=== PATIENT | female | born 1990 ===

== ENCOUNTER 2021-09-26 10:30 | Emergency (ER) | payer OTHER, SELFPAY ==
[2021-09-26] VITALS (12 sets, daily range): BP systolic 109–142; BP diastolic 63–83; PULSE 93–113; RESP 18; TEMP 37; O2SAT 97–100; BMI 39.4
--- NOTE | 2021-09-26 10:40 | DI.RAD.S_ITS ---
PROCEDURE: XR CHEST 1V INDICATIONS: post op fever eval for PNA TECHNIQUE: One view of the chest was acquired. COMPARISON: None. FINDINGS: Surgical changes and devices: None. Lungs and pleura: Lungs are clear. No pleural effusions or pneumothorax. Mediastinum: Mediastinal contours appear normal. Heart size is normal. Bones and chest wall: No suspicious bony lesions. Overlying soft tissues appear unremarkable. IMPRESSION: No acute pulmonary process. Dictated by: Regi Santana M.D. on 09/26/2021 at 11:32 Approved by: Regi Santana M.D. on 09/26/2021 at 11:32
--- NOTE | 2021-09-26 10:41 | ED_ITS ---
HPI - General Adult General Chief complaint: Abdominal Pain Stated complaint: post op surgery x8 days fever sweating Time Seen by Provider: 09/26/21 10:32 Source: patient Mode of arrival: Ambulatory Limitations: no limitations History of Present Illness HPI narrative: Patient is a 30-year-old female. Approximately 1 week ago underwent a laparoscopic assisted vaginal hysterectomy. This was done secondary to endo metriosis and pelvic pain. Was done at [facility]. She stated that they took her uterus and cervix. Her ovaries remained. She previously had already had her tubes removed. She states that over the past couple days she has had fevers and chills and body aches. She is also having urinary frequency and urgency. Has having minor vaginal spotting but no other discharge. No cough. No sore throat. No chest pain. No shortness of breath. No abdominal pain. No nausea vomiting. No skin rashes. Related Data Allergies Allergy/AdvReac Type Severity Reaction Status Date / Time cephalexin [From Keflex] Allergy Verified 09/26/21 10:43 ondansetron [From Zofran] Allergy Verified 09/26/21 10:43 sertraline [From Zoloft] Allergy Verified 09/26/21 10:43 Review of Systems Review of Systems ROS Unobtainable: All systems reviewed & are unremarkable except as noted in HPI and below Patient History Medical History (Updated 09/26/21 @ 13:28 by Osito Dixon DO) Endometriosis Surgical History History of hysterectomy Social History (Updated 09/26/21 @ 10:45 by Osito Dixon DO) lives independently: Yes Smoking Status: Never smoker Exam Initial Vital Signs Initial Vital Signs: Vital Signs Pulse Rate 113 H 09/26/21 10:38 Respiratory Rate 18 09/26/21 10:38 Pulse Oximetry 98 09/26/21 10:38 Const General: cooperative, comfortable and well developed HENNM Head: normal to inspection and normocephalic Resp Effort & Inspection: normal respiratory effort Auscultation: clear to auscultation bilaterally Cardio Rate: regular rate Rhythm: regular rhythm GI Inspection: normal to inspection and non-distended Palpation: No tender Skin Other: Surgical scars on abdomen that appear well without surrounding erythema. Neuro General: patient alert, patient awake and moves all extremities Extrem General: normal to inspection and capillary refill normal Psych Appearance: grossly normal and well kempt Course Orders Ordered: ED Orders 09/26/21 10:33 Complete Blood Count AUTO DIFF Stat 09/26/21 10:38 Urinalysis and Microscopic Stat Urine Culture Stat 09/26/21 10:40 XR chest 1V Stat 09/26/21 10:47 Comprehensive Metabolic Panel Stat Lactate (Lactic Acid) Stat Lipase Stat Test Serum,Qual Stat Procalcitonin Stat 09/26/21 11:00 Blood Culture Stat Discontinued Medications Sodium Chloride (Normal Saline 0.9%) 1,000 mls @ 1,000 mls/hr IV BOLUS ONE Stop: 09/26/21 11:39 Last Infusion: 09/26/21 12:12 Dose: 0 mls/hr Documented By: Admin: 09/26/21 10:53 Dose: 1,000 mls/hr Documented By: CARL Vital Signs Vital signs: Vital Signs - 8 hr 09/26/21 10:43 09/26/21 10:38 09/26/21 11:00 Temperature 98.6 F Pulse Rate 112 H 113 H 105 H Respiratory Rate 18 18 Blood Pressure 136/83 Pulse Oximetry 97 98 98 Oxygen Delivery Method Room Air 09/26/21 11:09 09/26/21 11:10 09/26/21 11:10 Temperature Pulse Rate 102 H 102 H Respiratory Rate 18 Blood Pressure 121/77 Pulse Oximetry 98 99 Oxygen Delivery Method 09/26/21 11:30 09/26/21 11:30 09/26/21 12:00 Temperature Pulse Rate 98 H Respiratory Rate Blood Pressure 111/72 113/63 Pulse Oximetry 98 Oxygen Delivery Method 09/26/21 12:00 09/26/21 13:38 09/26/21 12:30 Temperature Pulse Rate 97 H 97 H Respiratory Rate 18 Blood Pressure 142/78 H 109/71 Pulse Oximetry 100 98 Oxygen Delivery Method Room Air 09/26/21 12:30 09/26/21 13:00 09/26/21 13:01 Temperature Pulse Rate 97 H 93 H Respiratory Rate Blood Pressure 131/80 Pulse Oximetry 100 100 Oxygen Delivery Method 09/26/21 13:01 09/26/21 13:30 09/26/21 13:30 Temperature Pulse Rate 93 H 95 H Respiratory Rate Blood Pressure 142/78 H Pulse Oximetry 100 99 Oxygen Delivery Method Medical Decision Making Lab Data Result diagrams: 09/26/21 10:33 09/26/21 10:47 Labs: Lab Results 09/26/21 09/26/21 09/26/21 Range/Units 10:33 10:38 10:47 WBC 10.0 (4.5-11.0) X10^3/uL RBC 4.15 (4.0-5.2) X10^6/uL Hgb 11.0 L (12.0-16.0) g/dL Hct 33.1 L (36-46) % MCV 79.8 L (80-100) fL MCH 26.5 (26-34) PG MCHC 33.2 (30-36) % RDW 14.2 (11.6-14.8) % Plt Count 357 (150-400) X10^3/uL Neut % (Auto) 72.9 (50-75) % Lymph % (Auto) 15.5 L (25-40) % [place] % (Auto) 6.1 (3-14) % Eos % (Auto) 5.1 H (2-4) % Baso % (Auto) 0.4 (0-2) % Neut # (Auto) 7300 H (6903-3535) /uL Lymph # (Auto) 1500 (0734-6567) /uL [place] # (Auto) 600 (0-900) /uL Eos # (Auto) 500 H (0-450) /uL Baso # (Auto) 0 (0-100) /uL Sodium 138 (137-145) mmol/L Potassium 4.2 (3.4-5.1) mmol/L Chloride 100 (98-107) mmol/L Carbon Dioxide 25 (22-32) mmol/L BUN 10 (7-17) mg/dL Creatinine 0.69 (0.52-1.04) mg/dL Estimated GFR > 60 (>60) mL/min BUN/Creatinine Ratio 14.5 (6-22) Glucose 138 H (70-100) mg/dL Lactate (0.7-2.1) mmol/L Calcium 8.9 (8.4-10.2) mg/dL Total Bilirubin 0.5 (0.2-1.3) mg/dL AST 24 (14-36) IU/L ALT 20 (<35) IU/L Alkaline Phosphatase 118 (38-126) U/L Total Protein 8.6 H (6.3-8.2) g/dL Albumin 4.5 (3.5-5.0) g/dL Globulin 4.1 (1.7-4.1) g/dL Albumin/Globulin Ratio 1.1 (1.0-2.8) Lipase 34 (23-300) U/L Procalcitonin 0.09 (<0.5) ng/mL Serum , Qual (Negative) Urine Color Yellow Urine Appearance Clear Urine pH 7.5 (4.5-8.0) Ur Specific [place] 1.010 (1.000-1.035) Urine Protein 2+ H (Negative) Urine Glucose (UA) Negative (Negative) g/dL Urine Ketones Negative (NEGATIVE) Urine Occult Blood 2+ H (Negative) Urine Nitrate Negative (Negative) Urine Bilirubin Negative (NEGATIVE) Urine Urobilinogen 0.2 (0.2) E.U./dL Ur Leukocyte Esterase Trace H (NEGATIVE) Urine RBC 1-5/hpf (0-5/HPF) Urine WBC 1-5/hpf (0-5/HPF) Ur Squamous Epith Cells >30 /hpf H (0-5/HPF) Urine Bacteria Moderate (10-30) H (None) Ur Culture Indicated? Culture not indicate 09/26/21 09/26/21 Range/Units 10:47 10:47 WBC (4.5-11.0) X10^3/uL RBC (4.0-5.2) X10^6/uL Hgb (12.0-16.0) g/dL Hct (36-46) % MCV (80-100) fL MCH (26-34) PG MCHC (30-36) % RDW (11.6-14.8) % Plt Count (150-400) X10^3/uL Neut % (Auto) (50-75) % Lymph % (Auto) (25-40) % [place] % (Auto) (3-14) % Eos % (Auto) (2-4) % Baso % (Auto) (0-2) % Neut # (Auto) (3039-6847) /uL Lymph # (Auto) (0217-1585) /uL [place] # (Auto) (0-900) /uL Eos # (Auto) (0-450) /uL Baso # (Auto) (0-100) /uL Sodium (137-145) mmol/L Potassium (3.4-5.1) mmol/L Chloride (98-107) mmol/L Carbon Dioxide (22-32) mmol/L BUN (7-17) mg/dL Creatinine (0.52-1.04) mg/dL Estimated GFR (>60) mL/min BUN/Creatinine Ratio (6-22) Glucose (70-100) mg/dL Lactate 1.2 (0.7-2.1) mmol/L Calcium (8.4-10.2) mg/dL Total Bilirubin (0.2-1.3) mg/dL AST (14-36) IU/L ALT (<35) IU/L Alkaline Phosphatase (38-126) U/L Total Protein (6.3-8.2) g/dL Albumin (3.5-5.0) g/dL Globulin (1.7-4.1) g/dL Albumin/Globulin Ratio (1.0-2.8) Lipase (23-300) U/L Procalcitonin (<0.5) ng/mL Serum , Qual Negative (Negative) Urine Color Urine Appearance Urine pH (4.5-8.0) Ur Specific [place] (1.000-1.035) Urine Protein (Negative) Urine Glucose (UA) (Negative) g/dL Urine Ketones (NEGATIVE) Urine Occult Blood (Negative) Urine Nitrate (Negative) Urine Bilirubin (NEGATIVE) Urine Urobilinogen (0.2) E.U./dL Ur Leukocyte Esterase (NEGATIVE) Urine RBC (0-5/HPF) Urine WBC (0-5/HPF) Ur Squamous Epith Cells (0-5/HPF) Urine Bacteria (None) Ur Culture Indicated? Imaging Data Chest x-ray: Radiologist's Impression: [address] [address] XRay Report Signed Patient: Mattie Ford MR#: [id number] : 1990 Acct:[id number] Age/Sex: 30 / F Date of Service: 09/26/21 Loc: ED Accession Number: [id number] ?? Procedure: XR chest 1V Ordering Provider: Osito Dixon D.O. PROCEDURE:? XR CHEST 1V ? INDICATIONS:? post op fever eval for PNA ? TECHNIQUE:? One view of the chest was acquired.? ? COMPARISON:? None. ? FINDINGS:? ? Surgical changes and devices:? None.? ? Lungs and pleura:? Lungs are clear.? No pleural effusions or pneumothorax.? ? Mediastinum:? Mediastinal contours appear normal.? Heart size is normal.? ? Bones and chest wall:? No suspicious bony lesions.? Overlying soft tissues appear unremarkable.? ? IMPRESSION:? No acute pulmonary process. ? ? Dictated by: Regi Santana M.D. on 09/26/2021 at 11:32 ? ? Approved by: Regi Santana M.D. on 09/26/2021 at 11:32?? MDM Narrative Medical decision making narrative: Patient is benign exam. Is afebrile. Not tachycardic. Not hypotensive. No leukocytosis. Normal lactate. Normal procalcitonin. Negative chest x-ray. Urinalysis does have bacteria however also has epi cells. We wait for the culture to result before treating with any antibiotics. Blood cultures were obtained. There is no specific indication for any antibiotics. Patient is nontoxic appearing. Discharge home with strict return precautions. She expressed understanding agreement. Discharge Plan Departure Patient Disposition: Home Clinical Impression: Post-operative complication Activity Restrictions/Additional Instructions: Recommend that you continue all of the postoperative instructions given to you by the surgeon. There were cultures pending at the time of your discharge and we will contact you we to start any antibiotics. You can continue to take Tylenol/ibuprofen for any fevers. Be sure to increase your fluid intake. Return to the emergency department for any new or worsening symptoms. Referrals: Doctor Dee MD [Primary Care Provider] - Visit Report Forms: Patient Portal/API
[2021-09-26] MEDS: SODIUM CHLORIDE 0.9% 1,000 ML 1000 ML IV (10:53)
[2021-09-26 11:04] LABS: Add Manual Diff / Slide Review NO; Basophils Absolute Auto 0 /uL (0-100); Basophils Percent Auto 0.4 % (0-2); Eosinophils Absolute Auto 500 /uL (0-450); Eosinophils Percent Auto 5.1 % (2-4); Hematocrit 33.1 % (36-46); Lymphocytes Absolute Auto 1500 /uL (1100-4500); Lymphocytes Percent Auto 15.5 % (25-40); Mean Corpuscular HGB Conc 33.2 % (30-36); Mean Corpuscular Hemoglobin 26.5 PG (26-34); Mean Corpuscular Volume 79.8 fL (80-100); Monocytes Absolute Auto 600 /uL (0-900); Monocytes Percent Auto 6.1 % (3-14); Neutrophils Absolute Auto 7300 /uL (1500-7000); Neutrophils Percent Auto 72.9 % (50-75); Platelet Count 357 X10^3/uL (150-400); Red Blood Cell Count 4.15 X10^6/uL (4.0-5.2); Red Cell Distribution Width 14.2 % (11.6-14.8)
[2021-09-26 11:10] LABS: Appearance Urine UA CLEAR; Bilirubin Urine UA NEGATIVE (NEGATIVE); Color Urine UA YELLOW; Glucose Urine UA NEGATIVE (Negative); Ketones Urine UA NEGATIVE (NEGATIVE); Leukocyte Esterase Urine UA TRACE (NEGATIVE); Nitrite Urine UA NEGATIVE (Negative); Occult Blood Urine UA 2+ (Negative); Protein Urine UA 2+ (Negative); Urobilinogen Urine UA 0.2 E.U./dL (0.2)
[2021-09-26 11:11] LABS: pH Urine UA 7.5 (4.5-8.0)
--- NOTE | 2021-09-26 11:18 | PC.NURSE ---
Obtained pt care. Checked on pt who reports 2/10 cramping pain that radiates to back, and burning with voiding. traffic monitor specialist in place. Encouraged to use call light for needs.
[2021-09-26 11:33] LABS: Pregnancy Test Serum,Qual Negative (Negative)
[2021-09-26 11:33] LABS: RBC Urine 1-5/HPF (0-5/HPF); WBC Urine 1-5/HPF (0-5/HPF)
[2021-09-26 11:34] LABS: Bacteria Urine Moderate (10-30); Squamous Epithelial Cell Urine >30 /HPF (0-5/HPF)
[2021-09-26 11:53] LABS: Alanine Aminotransferase 20 IU/L (<35); Albumin 4.5 g/dL (3.5-5.0); Albumin Globulin Ratio 1.1 (1.0-2.8); Alkaline Phosphatase 118 U/L (38-126); Aspartate Aminotransferase 24 IU/L (14-36); BUN Creatinine Ratio 14.5 (6-22); Bilirubin Total 0.5 mg/dL (0.2-1.3); Blood Urea Nitrogen 10 mg/dL (7-17); Calcium 8.9 mg/dL (8.4-10.2); Carbon Dioxide 25 mmol/L (22-32); Chloride 100 mmol/L (98-107); Estimated Glomerular Filt Rate > 60 mL/min (>60); Globulin 4.1 g/dL (1.7-4.1); Glucose 138 mg/dL (70-100); HEMOLYSIS < 15 (0-50); Lipase 34 U/L (23-300); Potassium 4.2 mmol/L (3.4-5.1); Sodium 138 mmol/L (137-145); Total Protein 8.6 g/dL (6.3-8.2)
[2021-09-26 11:54] LABS: Lactate (Lactic Acid) 1.2 mmol/L (0.7-2.1)
[2021-09-26 12:10] LABS: Procalcitonin 0.09 ng/mL (<0.5)
== END 2021-09-26 13:41 | disposition home or self-care (01) ==
PROVIDERS: Emergency Provider Emergency Medicine
DX: T81.9XXA Unspecified complication of procedure, initial encounter (principal); R50.9 Fever, unspecified; Z90.710 Acquired absence of both cervix and uterus
CPT/HCPCS: 36415; 71045; 80053; 81001; 83605; 83690; 84145; 84703; 85025; 87040; 87086; 96360; 99284

== ENCOUNTER 2022-06-09 08:33 | Emergency (ER) | payer OTHER, SELFPAY ==
[2022-06-09] VITALS (9 sets, daily range): BP systolic 124–174; BP diastolic 78–98; PULSE 82–104; RESP 12–26; TEMP 37.2; O2SAT 98–100; BMI 40.6
--- NOTE | 2022-06-09 09:16 | DI.RAD.S_ITS ---
PROCEDURE: XR CHEST 1V INDICATIONS: chest pain TECHNIQUE: One view of the chest was acquired. COMPARISON: [facility], CR, XR CHEST 1V, 09/26/2021, 10:42. FINDINGS: Surgical changes and devices: None. Lungs and pleura: Lungs are clear. No pleural effusions or pneumothorax. Mediastinum: Mediastinal contours appear normal. Heart size is normal. Bones and chest wall: No suspicious bony lesions. Overlying soft tissues appear unremarkable. IMPRESSION: No acute cardiopulmonary process. Dictated by: Naeem Veras M.D. on 06/09/2022 at 9:47 Approved by: Naeem Veras M.D. on 06/09/2022 at 9:48
[2022-06-09 09:31] LABS: Add Manual Diff / Slide Review NO; Basophils Absolute Auto 100 /uL (0-100); Basophils Percent Auto 0.6 % (0-2); Eosinophils Absolute Auto 100 /uL (0-450); Eosinophils Percent Auto 1.3 % (2-4); Hematocrit 39.6 % (36-46); Hemoglobin 13.1 g/dL (12.0-16.0); Lymphocytes Absolute Auto 3200 /uL (1100-4500); Lymphocytes Percent Auto 36.3 % (25-40); Mean Corpuscular Hemoglobin 27.1 PG (26-34); Mean Corpuscular Volume 82.1 fL (80-100); Monocytes Absolute Auto 400 /uL (0-900); Monocytes Percent Auto 4.8 % (3-14); Neutrophils Absolute Auto 5000 /uL (1500-7000); Platelet Count 261 X10^3/uL (150-400); Red Blood Cell Count 4.82 X10^6/uL (4.0-5.2); Red Cell Distribution Width 14.5 % (11.6-14.8); White Blood Cell Count 8.8 X10^3/uL (4.5-11.0)
[2022-06-09 09:41] LABS: INR 1.1 (0.9-1.3); Prothrombin Time 12.3 SECONDS (10.1-12.7)
[2022-06-09 09:43] LABS: PTT Partial Thromboplastin Tim 33 SECONDS (26-36)
[2022-06-09 09:54] LABS: Alanine Aminotransferase 24 IU/L (<35); Albumin 4.7 g/dL (3.5-5.0); Albumin Globulin Ratio 1.3 (1.0-2.8); Alkaline Phosphatase 76 U/L (38-126); Aspartate Aminotransferase 27 IU/L (14-36); BUN Creatinine Ratio 14.8 (6-22); Bilirubin Total 0.4 mg/dL (0.2-1.3); Blood Urea Nitrogen 9 mg/dL (7-17); Calcium 9.3 mg/dL (8.4-10.2); Carbon Dioxide 25 mmol/L (22-32); Chloride 100 mmol/L (98-107); Creatine Kinase 83 U/L (30-135); Estimated Glomerular Filt Rate > 60 mL/min (>60); Globulin 3.7 g/dL (1.7-4.1); Glucose 114 mg/dL (70-100); HEMOLYSIS < 15 (0-50); Lipase 45 U/L (23-300); Magnesium 2.3 mg/dL (1.6-2.3); Potassium 4.4 mmol/L (3.4-5.1); Sodium 137 mmol/L (137-145); Total Protein 8.4 g/dL (6.3-8.2)
[2022-06-09 10:06] LABS: Troponin I < 0.012 ng/mL (0.01-0.034)
[2022-06-09 10:15] LABS: D Dimer 361 ng/ml (<500)
--- NOTE | 2022-06-09 10:15 | ED_ITS ---
HPI - Arrhythmia/Palpitations General Chief Complaint: Arrhythmia/Palpitations Stated Complaint: sent by DR susannah narayan. ongoing SOB T-6 Time Seen by Provider: 06/09/22 09:58 Source: patient Mode of arrival: Ambulatory History of Present Illness HPI narrative: Patient's and hip right primary care for evaluation palpitations that are improv ing since last Wednesday. 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 Has annual echocardiograms. Patient states she was on Paxil 10 mg a day for many years but stopped 1 or 2 years ago. Primary care restarted her on 20 mg a day a week prior to her palpitations that started last Wednesday. She stopped Paxil the following day on . Since then the palpitations have improved. No chest pain no syncope. No history of blood clots in legs or lungs. Occasionally when heart rate goes high she states she feels short of breath. Palpitations feel regular and fast to her. Patient denies any complaints at this time. No history of thyroid disease. Related Data Allergies Allergy/AdvReac Type Severity Reaction Status Date / Time cephalexin [From Keflex] Allergy Verified 06/09/22 09:16 ondansetron [From Zofran] Allergy Verified 06/09/22 09:16 sertraline [From Zoloft] Allergy Verified 06/09/22 09:16 Review of Systems Review of Systems Narrative: GENERAL: negative chills, fatigue, malaise, fever, sweats. HEENT: negative sinus pain, ear pain, sore throat RESPIRATORY: Positive dyspnea, negative cough CARDIOVASCULAR: negative chest pain, positive palpitations GASTROINTESTINAL: negative nausea, vomiting, abdominal pain : negative dysuria, frequency, hematuria MUSCULOSKELETAL: negative muscle or bony pain SKIN: negative rash, skin lesions NEUROLOGIC: negative weakness, numbness ROS Unobtainable: All systems reviewed & are unremarkable except as noted in HPI and below Patient History Medical History Endometriosis Surgical History History of hysterectomy Social History lives independently: Yes Smoking Status: Never smoker Smoking Status: Never smoker Substance Use Type: does not use Exam Narrative Exam Narrative: GENERAL: in no distress, not toxic not dyspneic HEAD: Normocephalic. EYES: Pupils equal round ENT: Mucous membranes moist. NECK: Trachea midline. No thyromegaly CARDIOVASCULAR: Regular rate and rhythm without murmurs RESPIRATORY: Clear to auscultation. Breath sounds equal bilaterally. No wheezes, rales, or rhonchi. GASTROINTESTINAL: Abdomen soft, non-tender EXTREMITIES: No gross deformities. BACK: No flank tenderness. NEURO: AOx4. SKIN: Warm and dry PSYCH: Not anxious, is cooperative Initial Vital Signs Initial Vital Signs: Vital Signs Temperature 98.9 F 06/09/22 09:12 Pulse Rate 102 H 06/09/22 09:12 Respiratory Rate 18 06/09/22 09:12 Blood Pressure 163/96 H 06/09/22 09:12 Pulse Oximetry 100 06/09/22 09:12 Oxygen Delivery Method Room Air 06/09/22 09:12 Course Orders Ordered: ED Orders 06/09/22 09:16 XR chest 1V Stat Complete Blood Count AUTO DIFF Stat 06/09/22 09:25 Comprehensive Metabolic Panel Stat Lipase Stat Magnesium Stat PTT Partial Thromboplastin Amol Stat Prothrombin Time INR Stat Troponin & CK Cardiac Panel Stat 06/09/22 09:30 D Dimer Stat TSH [Thyroid Stimulating Hormone] Stat 06/09/22 09:31 EKG-12 Lead Stat Vital Signs Vital signs: Vital Signs - 8 hr 06/09/22 09:12 Temperature 98.9 F Pulse Rate 102 H Respiratory Rate 18 Blood Pressure 163/96 H Pulse Oximetry 100 Oxygen Delivery Method Room Air MDM - Arrhythmia/Palpitations Lab Data 06/09/22 09:16 06/09/22 09:25 Labs: Lab Results 06/09/22 06/09/22 06/09/22 Range/Units 09:16 09:25 09:25 WBC 8.8 (4.5-11.0) X10^3/uL RBC 4.82 (4.0-5.2) X10^6/uL Hgb 13.1 (12.0-16.0) g/dL Hct 39.6 (36-46) % MCV 82.1 (80-100) fL MCH 27.1 (26-34) PG MCHC 33.0 (30-36) % RDW 14.5 (11.6-14.8) % Plt Count 261 (150-400) X10^3/uL Neut % (Auto) 57.0 (50-75) % Lymph % (Auto) 36.3 (25-40) % [place] % (Auto) 4.8 (3-14) % Eos % (Auto) 1.3 L (2-4) % Baso % (Auto) 0.6 (0-2) % Neut # (Auto) 5000 (7821-1187) /uL Lymph # (Auto) 3200 (4652-3208) /uL [place] # (Auto) 400 (0-900) /uL Eos # (Auto) 100 (0-450) /uL Baso # (Auto) 100 (0-100) /uL PT 12.3 (10.1-12.7) SECONDS INR 1.1 (0.9-1.3) APTT 33 (26-36) SECONDS D-Dimer (<500) ng/ml Sodium 137 (137-145) mmol/L Potassium 4.4 (3.4-5.1) mmol/L Chloride 100 (98-107) mmol/L Carbon Dioxide 25 (22-32) mmol/L BUN 9 (7-17) mg/dL Creatinine 0.61 (0.52-1.04) mg/dL Estimated GFR > 60 (>60) mL/min BUN/Creatinine Ratio 14.8 (6-22) Glucose 114 H (70-100) mg/dL Calcium 9.3 (8.4-10.2) mg/dL Magnesium 2.3 (1.6-2.3) mg/dL Total Bilirubin 0.4 (0.2-1.3) mg/dL AST 27 (14-36) IU/L ALT 24 (<35) IU/L Alkaline Phosphatase 76 (38-126) U/L Total Creatine Kinase 83 (30-135) U/L CK-MB (CK-2) TNP CK-MB (CK-2) Rel Index TNP Troponin I < 0.012 (0.01-0.034) ng/mL Total Protein 8.4 H (6.3-8.2) g/dL Albumin 4.7 (3.5-5.0) g/dL Globulin 3.7 (1.7-4.1) g/dL Albumin/Globulin Ratio 1.3 (1.0-2.8) Lipase 45 (23-300) U/L TSH (0.47-4.68) uIU/mL 06/09/22 06/09/22 Range/Units 09:30 09:30 WBC (4.5-11.0) X10^3/uL RBC (4.0-5.2) X10^6/uL Hgb (12.0-16.0) g/dL Hct (36-46) % MCV (80-100) fL MCH (26-34) PG MCHC (30-36) % RDW (11.6-14.8) % Plt Count (150-400) X10^3/uL Neut % (Auto) (50-75) % Lymph % (Auto) (25-40) % [place] % (Auto) (3-14) % Eos % (Auto) (2-4) % Baso % (Auto) (0-2) % Neut # (Auto) (1052-7992) /uL Lymph # (Auto) (2451-6680) /uL [place] # (Auto) (0-900) /uL Eos # (Auto) (0-450) /uL Baso # (Auto) (0-100) /uL PT (10.1-12.7) SECONDS INR (0.9-1.3) APTT (26-36) SECONDS D-Dimer 361 (<500) ng/ml Sodium (137-145) mmol/L Potassium (3.4-5.1) mmol/L Chloride (98-107) mmol/L Carbon Dioxide (22-32) mmol/L BUN (7-17) mg/dL Creatinine (0.52-1.04) mg/dL Estimated GFR (>60) mL/min BUN/Creatinine Ratio (6-22) Glucose (70-100) mg/dL Calcium (8.4-10.2) mg/dL Magnesium (1.6-2.3) mg/dL Total Bilirubin (0.2-1.3) mg/dL AST (14-36) IU/L ALT (<35) IU/L Alkaline Phosphatase (38-126) U/L Total Creatine Kinase (30-135) U/L CK-MB (CK-2) CK-MB (CK-2) Rel Index Troponin I (0.01-0.034) ng/mL Total Protein (6.3-8.2) g/dL Albumin (3.5-5.0) g/dL Globulin (1.7-4.1) g/dL Albumin/Globulin Ratio (1.0-2.8) Lipase (23-300) U/L TSH 1.06 (0.47-4.68) uIU/mL Imaging Data Chest x-ray: Radiologist's Impresson: PROCEDURE:? XR CHEST 1V ? INDICATIONS:? chest pain ? TECHNIQUE:? One view of the chest was acquired.? ? COMPARISON:? [facility], CR, XR CHEST 1V, 09/26/2021, 10:42. ? FINDINGS:? ? Surgical changes and devices:? None.? ? Lungs and pleura:? Lungs are clear.? No pleural effusions or pneumothorax.? ? Mediastinum:? Mediastinal contours appear normal.? Heart size is normal.? ? Bones and chest wall:? No suspicious bony lesions.? Overlying soft tissues appear unremarkable.? ? IMPRESSION:? No acute cardiopulmonary process. ? ? ? Dictated by: Naeem Veras M.D. on 06/09/2022 at 9:47 ? ? Approved by: Naeem Veras M.D. on 06/09/2022 at 9:48 ? [facility] Narrative Medical decision making narrative: Patient's and hip right primary care for evaluation palpitations that are improving since last Wednesday. 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 Has annual echocardiograms. Patient states she was on Paxil 10 mg a day for many years but stopped 1 or 2 years ago. Primary care restarted her on 20 mg a day a week prior to her palpitations that started last Wednesday. She stopped Paxil the following day on . Since then the palpitations have improved. No chest pain no syncope. No history of blood clots in legs or lungs. Occasionally when heart rate goes high she states she feels short of breath. Palpitations feel regular and fast to her. Patient denies any complaints at this time. No history of thyroid disease. After history and exam CBC CMP TSH D-dimer troponin EKG chest x-ray have been ordered [facility] CC: Palpitations Complicating co-morbidities: History of myocarditis pericarditis Data collected from: Patient Medical records reviewed: No previous visits here for this complaint Differential considered: Includes but not limited to myocarditis pericarditis pulmonary embolism SVT, arrhythmia, medication side effect Exam documented above, pertinent findings include: Regular rate and rhythm Lab Test results independently reviewed as above. Pertinent findings: White cell count 8.8 hemoglobin 13 hematocrit 39 Sodium 137 potassium 4.4 creatinine 0.61 glucose 114, magnesium 2.3 calcium 9.3 troponin less than 0.012 D-dimer 361 TSH 1.06 Independently reviewed EKG as above normal sinus rhythm normal EKG rate 93 Imaging studies independently reviewed: cxr no acute process Re-evaluations: 11:48 a.m.. Reviewed results with patient. Patient not had any palpitations or arrhythmias on monitor here. Blood pressure noted. However this may be related to patient's new medication. Appropriate for follow up with primary care for re-evaluation of blood pressure medication. She does have a leather carver that she will follow up for echocardiogram and Holter monitor. Blood pressure 129/76 at time of discharge Discussion: Appropriate for discharge home. Exam and laboratory studies and imaging and EKG are reassuring. Patient's symptoms likely related to Paxil high dose starting off a week prior to her symptoms and did improve after stopping Paxil. However with history of myocarditis and pericarditis approach for outpatient echocardiogram and Holter monitor. At this time patient is asymptomatic. Return precautions reviewed with her. She does have primary care as well as leather carver to follow up for these studies. No medications indicated this time. Diagnosis: Palpitations Discharge Plan Departure Patient Disposition: Home Clinical Impression: Palpitations Instructions: DI for Arrhythmias Activity Restrictions/Additional Instructions: Please see your family doctor and leather carver within week for re-evaluation. Your palpitations may be due to recent medication and I agree with you to stop that medication until seen by your primary care. You need to contact your leather carver to schedule outpatient echocardiogram as well as Holter monitor for your palpitations. Return if worse if any questions or concerns. Referrals: Doctor Dee MD [Primary Care Provider] - Stand Alone Forms: Patient Portal/API
[2022-06-09 10:47] LABS: Thyroid Stimulating Hormone 1.06 uIU/mL (0.47-4.68)
== END 2022-06-09 12:04 | disposition home or self-care (01) ==
PROVIDERS: Emergency Provider Emergency Medicine
DX: R00.2 Palpitations (principal); R07.9 Chest pain, unspecified
CPT/HCPCS: 36415; 71045; 80053; 82550; 83690; 83735; 84443; 84484; 85025; 85379; 85610; 85730; 93005; 99283; 99284

== ENCOUNTER 2023-11-18 17:26 | Emergency (ER) | payer BC, SELFPAY ==
[2023-11-18] VITALS (10 sets, daily range): BP systolic 115–139; BP diastolic 64–89; PULSE 69–94; RESP 16–18; TEMP 37.1; O2SAT 100; BMI 31.9
[2023-11-18 18:30] LABS: Add Manual Diff / Slide Review NO; Basophils Absolute Auto 0 /uL (0-100); Basophils Percent Auto 0.4 % (0-2); Eosinophils Absolute Auto 400 /uL (0-450); Eosinophils Percent Auto 3.8 % (2-4); Hematocrit 37.1 % (36-46); Hemoglobin 12.5 g/dL (12.0-16.0); Lymphocytes Absolute Auto 2600 /uL (1100-4500); Lymphocytes Percent Auto 25.6 % (25-40); Mean Corpuscular HGB Conc 33.6 % (30-36); Mean Corpuscular Hemoglobin 28.7 PG (26-34); Mean Corpuscular Volume 85.2 fL (80-100); Monocytes Absolute Auto 500 /uL (0-900); Monocytes Percent Auto 5.1 % (3-14); Neutrophils Absolute Auto 6600 /uL (1500-7000); Neutrophils Percent Auto 65.1 % (50-75); Platelet Count 231 X10^3/uL (150-400); Red Blood Cell Count 4.35 X10^6/uL (4.0-5.2); Red Cell Distribution Width 13.4 % (11.6-14.8); White Blood Cell Count 10.2 X10^3/uL (4.5-11.0)
[2023-11-18 18:40] LABS: Alanine Aminotransferase 16 IU/L (<35); Albumin 4.7 g/dL (3.5-5.0); Albumin Globulin Ratio 1.5 (1.0-2.8); Alkaline Phosphatase 72 U/L (38-126); Aspartate Aminotransferase 27 IU/L (14-36); BUN Creatinine Ratio 18.5 (6-22); Bilirubin Total 0.4 mg/dL (0.2-1.3); Blood Urea Nitrogen 12 mg/dL (7-17); Calcium 9.6 mg/dL (8.4-10.2); Carbon Dioxide 27 mmol/L (22-32); Chloride 101 mmol/L (98-107); Estimated Glomerular Filt Rate > 60 mL/min (>60); Globulin 3.1 g/dL (1.7-4.1); Glucose 102 mg/dL (70-100); HEMOLYSIS < 15 (0-50); Lipase 66 U/L (23-300); Potassium 4.1 mmol/L (3.4-5.1); Sodium 136 mmol/L (137-145); Total Protein 7.8 g/dL (6.3-8.2)
--- NOTE | 2023-11-18 20:39 | ED_ITS ---
HPI - General Adult General Chief complaint: Abdominal Pain Stated complaint: abd px Time Seen by Provider: 11/18/23 19:30 Source: patient Mode of arrival: Ambulatory History of Present Illness HPI narrative: 33-year-old woman 6 months postop gastric sleeve with a distant history of myocarditis/pericarditis with occasional palpitations. Reports abdominal pain that started last night seemed to calm over the course of the evening and then recurred with increasing pain radiating through to her back over the last 5 hours. It is associated with nausea but no vomiting. She had a normal bowel movement this morning which did not influence her pain. She is post cholecystectomy and hysterectomy. Was told at the time of her procedure that her pancreas was slightly inflamed. Related Data Allergies Allergy/AdvReac Type Severity Reaction Status Date / Time cephalexin [From Keflex] Allergy Verified 11/18/23 17:41 ondansetron [From Zofran] Allergy Verified 11/18/23 17:41 sertraline [From Zoloft] Allergy Verified 11/18/23 17:41 Review of Systems Review of Systems Narrative: Pertinent positive and negative findings as per HPI Patient History Medical History Endometriosis Surgical History History of cholecystectomy H/O gastric sleeve History of hysterectomy Social History lives independently: Yes Smoking Status: Never smoker Smoking Status: Never smoker Substance Use Type: does not use Exam Initial Vital Signs Initial Vital Signs: Vital Signs Temperature 98.8 F 11/18/23 17:41 Pulse Rate 80 11/18/23 17:41 Respiratory Rate 16 11/18/23 17:41 Blood Pressure 139/64 11/18/23 17:41 Pulse Oximetry 100 11/18/23 17:41 Oxygen Delivery Method Room Air 11/18/23 17:41 General: Healthy appearing, in no acute distress. Able to give a complete and coherent history. Well-nourished well-developed HEENT: Moist mucous membranes, normal sclera with reactive pupils, Respiratory: Lungs are clear to auscultation, no wheezing no rales no rhonchi. Full and symmetrical air movement Cardiac: Regular rate and rhythm no murmurs no bruits Abdomen: Soft, minor tenderness in the epigastrium to left upper quadrant, down onto the left lower quadrant. There is no rebound or guarding. She does not have an acute surgical abdomen. There is no flank pain. Skin: Warm and dry, no rashes Neurologic: Grossly neurologically intact with no obvious asymmetries or abnormalities Extremities: No trauma, well perfused Psych: Cooperative, appropriate insight and affect Course Orders Ordered: ED Orders 11/18/23 18:18 Complete Blood Count AUTO DIFF Stat Comprehensive Metabolic Panel Stat Lipase Stat 11/18/23 20:47 CT abdomen pelvis w con Stat Hydromorphone HCl (Hydromorphone 0.5 Mg Inj) 0.5 mg IV Q15MIN PRN PRN Reason: Pain, Discontinued Medications Sodium Chloride (Normal Saline 0.9%) 1,000 mls @ 1,000 mls/hr IV BOLUS ONE Stop: 11/18/23 21:45 Last Admin: 11/18/23 20:56 Dose: 1,000 mls/hr Documented By: ABRAAHM Ketorolac Tromethamine (Ketorolac 30 Mg/Ml Vial) 15 mg IV NOW ONE Stop: 11/18/23 20:47 Last Admin: 11/18/23 20:56 Dose: 15 mg Documented By: ABRAHAM Metoclopramide HCl (Metoclopramide 10 Mg/2 Ml Inj) 10 mg IV NOW ONE Stop: 11/18/23 20:48 Last Admin: 11/18/23 20:56 Dose: 10 mg Documented By: ABRAHAM Vital Signs Vital signs: Vital Signs - 8 hr 11/18/23 17:41 11/18/23 19:00 11/18/23 19:01 Temperature 98.8 F Pulse Rate 80 80 75 Respiratory Rate 16 Blood Pressure 139/64 Pulse Oximetry 100 100 Oxygen Delivery Method Room Air Room Air 11/18/23 19:01 11/18/23 19:30 11/18/23 19:30 Temperature Pulse Rate 75 Respiratory Rate 18 Blood Pressure 139/86 131/80 Pulse Oximetry 100 Oxygen Delivery Method Room Air 11/18/23 20:00 11/18/23 20:00 11/18/23 20:14 Temperature Pulse Rate 70 Respiratory Rate Blood Pressure 123/82 126/89 Pulse Oximetry 100 Oxygen Delivery Method Room Air 11/18/23 20:14 11/18/23 20:30 11/18/23 20:31 Temperature Pulse Rate 71 70 Respiratory Rate 17 Blood Pressure 115/75 Pulse Oximetry 100 Oxygen Delivery Method Room Air 11/18/23 20:31 11/18/23 21:07 11/18/23 21:07 Temperature Pulse Rate 69 94 H Respiratory Rate 18 Blood Pressure 135/79 Pulse Oximetry 100 100 Oxygen Delivery Method Room Air 11/18/23 21:30 11/18/23 21:30 Temperature Pulse Rate 76 Respiratory Rate 17 Blood Pressure 125/76 Pulse Oximetry 100 Oxygen Delivery Method Room Air Medical Decision Making Lab Data 11/18/23 18:18 11/18/23 18:18 Labs: Lab Results 11/18/23 Range/Units 18:18 WBC 10.2 (4.5-11.0) X10^3/uL RBC 4.35 (4.0-5.2) X10^6/uL Hgb 12.5 (12.0-16.0) g/dL Hct 37.1 (36-46) % MCV 85.2 (80-100) fL MCH 28.7 (26-34) PG MCHC 33.6 (30-36) % RDW 13.4 (11.6-14.8) % Plt Count 231 (150-400) X10^3/uL Neut % (Auto) 65.1 (50-75) % Lymph % (Auto) 25.6 (25-40) % [place] % (Auto) 5.1 (3-14) % Eos % (Auto) 3.8 (2-4) % Baso % (Auto) 0.4 (0-2) % Neut # (Auto) 6600 (3307-4170) /uL Lymph # (Auto) 2600 (3873-6078) /uL [place] # (Auto) 500 (0-900) /uL Eos # (Auto) 400 (0-450) /uL Baso # (Auto) 0 (0-100) /uL Sodium 136 L (137-145) mmol/L Potassium 4.1 (3.4-5.1) mmol/L Chloride 101 (98-107) mmol/L Carbon Dioxide 27 (22-32) mmol/L BUN 12 (7-17) mg/dL Creatinine 0.65 (0.52-1.04) mg/dL Estimated GFR > 60 (>60) mL/min BUN/Creatinine Ratio 18.5 (6-22) Glucose 102 H (70-100) mg/dL Calcium 9.6 (8.4-10.2) mg/dL Total Bilirubin 0.4 (0.2-1.3) mg/dL AST 27 (14-36) IU/L ALT 16 (<35) IU/L Alkaline Phosphatase 72 (38-126) U/L Total Protein 7.8 (6.3-8.2) g/dL Albumin 4.7 (3.5-5.0) g/dL Globulin 3.1 (1.7-4.1) g/dL Albumin/Globulin Ratio 1.5 (1.0-2.8) Lipase 66 (23-300) U/L Urine Dip Bedside Urine Glucose Negative Bedside Urine Bilirubin - Negative Bedside Urine Ketone - Negative Urine Specific [place] 1.010 Bedside Urine Occult Blood - Negative Bedside Urine pH 6.0 Bedside Urine Protein - Negative Bedside Urine Urobilinogen - Negative Bedside Urine Nitrite - Negative Bedside Urine Leukocytes - Negative Esterase Point of care testing: Urine Dip Bedside Urine Glucose Negative Bedside Urine Bilirubin - Negative Bedside Urine Ketone - Negative Urine Specific [place] 1.010 Bedside Urine Occult Blood - Negative Bedside Urine pH 6.0 Bedside Urine Protein - Negative Bedside Urine Urobilinogen - Negative Bedside Urine Nitrite - Negative Bedside Urine Leukocytes - Negative Esterase Imaging Data CT scan - abdomen/pelvis: Radiologist's Impression: PROCEDURE: CT ABDOMEN PELVIS W CON INDICATIONS: upper abdominal pain TECHNIQUE: After the administration of intravenous contrast, axial sections acquired from the lung bases to the pubic symphysis. Coronal and sagittal reformats were performed. For radiation dose reduction, the following was used: automated exposure control, adjustment of mA and/or kV according to patient size. COMPARISON: None. FINDINGS: Image quality: Diagnostic. Lower Chest: No significant findings. ABDOMEN: Liver: No solid mass. Gallbladder: Absent. Biliary ducts: No biliary dilation. Pancreas: No ductal dilation. Spleen: Size is within normal limits. Adrenal Glands: No adrenal nodules. Kidneys and Ureters: No hydronephrosis. No solid mass. No complex renal cystic lesion which requires follow up. Stomach and Bowel: Normal colonic caliber, without significant wall thickening. Gastric sleeve surgery. Peritoneum: No abnormal intraperitoneal fluid. No free air. Ventral Wall: No significant ventral hernia. Abdominal Nodes: No retroperitoneal or mesenteric adenopathy by size criteria. Vessels: Aorta and inferior vena cava are normal in size. PELVIS: Pelvic Organs: Unremarkable. Bladder: No bladder wall thickening, accounting for underdistention. Pelvic Nodes: No enlarged lymph nodes. Miscellaneous: No inguinal hernias are seen. Bones: No aggressive osseous abnormality. IMPRESSION: No findings to explain the patient's vomiting. No bowel obstruction or evidence of enteritis. Dictated by: Naeem Veras M.D. on 11/18/2023 at 21:44 MDM Narrative Medical decision making narrative: CC: Abdominal pain Complicating co-morbidities: Lap band surgery 6 months ago Data collected from: patient Social determinants of health that may influence the patients condition: Medical records reviewed: History of pericarditis/myocarditis Differential considered: Complications of surgery, constipation, pancreatitis, gastroenteritis, gastritis or gastric ulcer Exam documented above, pertinent findings include: Pain from the epigastrium to the left upper quadrant, no evidence of acute surgical abdomen remainder of exam is benign Lab Test results independently reviewed as above. Pertinent findings: CBC is unremarkable Chemistries are reassuring Lipase is unremarkable Urine does not suggest urinary tract infection Imaging studies independently reviewed: CT scan of the abdomen does not show any acute abnormalities that would explain her pain. Treatments: Patient given parenteral fluids, Toradol and Reglan and is feeling much better Discussion: 33-year-old woman 6 months post gastric sleeve surgery with abdominal pain intermittent for the last 24 hours and significantly worse over the 6 hours prior to being seen. CT scan and lab work is reassuring no evidence of obstruction or infection. No indication for hospitalization or further imaging studies at this time. She is feeling better after fluids and Toradol given. She has nausea medication available to her at home. At this point I think discharge home is safe. We talked about reasons to return to the emergency department. Questions are answered. Discharge Plan Departure Patient Disposition: Home Clinical Impression: Abdominal pain Qualifiers: Abdominal location: upper abdomen, unspecified Qualified Code(s): R10.10 - Upper abdominal pain, unspecified Instructions: DI for Abdominal Pain-Adult Activity Restrictions/Additional Instructions: Thank you for coming in today I am sorry that you are hurting. Fortunately, your blood work is actually quite reassuring as is your CT scan. I am not seeing any evidence of bowel obstruction, perforation, significant infection, complications from your gastric sleeve surgery. At this point I think it is safe to see what your body does over the next day or 2. Often times the fluids that you are given in the ER really do make an ice difference. Please do use the nausea medication that you said you have available at home as needed. If you find that you are getting worse or develop any new symptoms, please feel free to return to the emergency department for further evaluation. Referrals: Miscellaneous,Doctor, MD [Primary Care Provider] - Stand Alone Forms: Patient Portal/API
--- NOTE | 2023-11-18 20:47 | DI.CT.S_ITS ---
PROCEDURE: CT ABDOMEN PELVIS W CON INDICATIONS: upper abdominal pain TECHNIQUE: After the administration of intravenous contrast, axial sections acquired from the lung bases to the pubic symphysis. Coronal and sagittal reformats were performed. For radiation dose reduction, the following was used: automated exposure control, adjustment of mA and/or kV according to patient size. COMPARISON: None. FINDINGS: Image quality: Diagnostic. Lower Chest: No significant findings. ABDOMEN: Liver: No solid mass. Gallbladder: Absent. Biliary ducts: No biliary dilation. Pancreas: No ductal dilation. Spleen: Size is within normal limits. Adrenal Glands: No adrenal nodules. Kidneys and Ureters: No hydronephrosis. No solid mass. No complex renal cystic lesion which requires follow up. Stomach and Bowel: Normal colonic caliber, without significant wall thickening. Gastric sleeve surgery. Peritoneum: No abnormal intraperitoneal fluid. No free air. Ventral Wall: No significant ventral hernia. Abdominal Nodes: No retroperitoneal or mesenteric adenopathy by size criteria. Vessels: Aorta and inferior vena cava are normal in size. PELVIS: Pelvic Organs: Unremarkable. Bladder: No bladder wall thickening, accounting for underdistention. Pelvic Nodes: No enlarged lymph nodes. Miscellaneous: No inguinal hernias are seen. Bones: No aggressive osseous abnormality. IMPRESSION: No findings to explain the patient's vomiting. No bowel obstruction or evidence of enteritis. Dictated by: Naeem Veras M.D. on 11/18/2023 at 21:44 Approved by: Naeem Veras M.D. on 11/18/2023 at 21:47
[2023-11-18] MEDS: KETOROLAC 30 MG/ML VIAL 15 MG IV (20:56)
[2023-11-18] MEDS: SODIUM CHLORIDE 0.9% 1,000 ML 1000 ML IV (20:56)
[2023-11-18] MEDS: METOCLOPRAMIDE 10 MG/2 ML INJ IV (20:56)
== END 2023-11-18 22:27 | disposition home or self-care (01) ==
PROVIDERS: Emergency Medicine; Emergency Provider Emergency Medicine
DX: R10.10 Upper abdominal pain, unspecified (principal); Z90.710 Acquired absence of both cervix and uterus
CPT/HCPCS: 36415; 74177; 80053; 81003; 83690; 85025; 96361; 96374; 96375; 99284; J1885; J2765; Q9967